=== PATIENT | female | born 1995 | race Hispanic/Latino ===

== ENCOUNTER 2022-07-28 17:25 | Emergency (ER) | payer BC ==
[~2022-07-28] VITALS: Ht 160 cm; Wt 72.1 kg
[2022-07-28] MEDS ORDERED: IBUPROFEN 600 MG TAB PO STA (18:52)
[2022-07-28] MEDS ORDERED: ZITHROMAX250 MG PO (19:50)
== END 2022-07-28 19:59 | disposition home or self-care (01) ==
LOC: FSED 17:42
DX: R50.9 Fever, unspecified (principal); J20.9 Acute bronchitis, unspecified; R05.9 Cough, unspecified; I10 Essential (primary) hypertension; F41.9 Anxiety disorder, unspecified
CPT/HCPCS: 83518; 87400; 99282